=== PATIENT | male | born 1980 ===

== ENCOUNTER 2025-02-16 01:51 | Emergency (ER) | payer SELFPAY ==
[2025-02-16 02:09] VITALS: BP 141/89; PULSE 97; RESP 16; TEMP 36.9; O2SAT 97; BMI 23.9
--- NOTE | 2025-02-16 02:48 | ED.LOWEXIN ---
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 He is not up-to-date on his tetanus shot. He is able to walk but in pain at this time. Other than what is stated 14 point review of system is negative. Related Data Previous Rx's Medication Instructions Recorded cephalexin 500 mg capsule 500 mg PO Q6H #28 caps 02/16/25 hydrocodone 5 mg-acetaminophen 325 1 tab PO Q6H PRN pain #20 tabs 02/16/25 mg tablet Allergies Allergy/AdvReac Type Severity Reaction Status Date / Time No Known Drug Allergies Allergy Verified 02/16/25 02:09 Review of Systems Review of Systems ROS Unobtainable: All systems reviewed & are unremarkable except as noted in HPI and below Patient History Social History Smoking Status: Never smoker Smoking Status: Never smoker Exam Narrative Exam Narrative: GENERAL: [44] year old patient appears stated age. Well-developed patient, in mild distress. HEAD: Atraumatic. Normocephalic. EYES: Pupils equal round and reactive. Extraocular motions intact. No scleral icterus. No injection or drainage. NECK: Trachea midline. Non tender EXTREMITIES: No edema or joint tenderness. BACK: Nontender without deformity or crepitance. No flank tenderness. NEURO: AOx3. SKIN: R great toe nail is loose at the base but still intact , superficial abrasion at tip of big toe 0.1x0.1mm. Motor/sensory intact +2DP +2PT cap refill <2secs Initial Vital Signs Initial Vital Signs: Vital Signs Temperature 98.4 F 02/16/25 02:09 Pulse Rate 97 H 02/16/25 02:09 Respiratory Rate 16 02/16/25 02:09 Blood Pressure 141/89 H 02/16/25 02:09 Pulse Oximetry 97 02/16/25 02:09 Oxygen Delivery Method Room Air 02/16/25 02:09 Course Vital Signs Vital signs: Vital Signs - 8 hr 02/16/25 02:09 Temperature 98.4 F Pulse Rate 97 H Respiratory Rate 16 Blood Pressure 141/89 H Pulse Oximetry 97 Oxygen Delivery Method Room Air MDM - Extremity Injury (Lower) MDM Narrative Medical decision making narrative: Vital signs, nurse triage note, medication list, and all previous ER visits reviewed. Patient had tetanus updated along with bacitracin ointment [place] and ibuprofen given here. DC home on rx for [place] and cephalexin. Differential diagnosis include nail bed, nail plate, avulsion injury, subungual hematoma, cellulitis. Discussed with patient it would take a few weeks to months for nail to regrow again. Discharge Plan Departure Patient Disposition: Home Clinical Impression: Injury of nail Instructions: DI for Nail Avulsion Injury Activity Restrictions/Additional Instructions: Return with new or worsening symptoms. Take medicines as directed. Prescriptions: New cephalexin 500 mg capsule 500 mg PO Q6H Qty: 28 0RF hydrocodone-acetaminophen 5-325 mg tablet 1 tab PO Q6H PRN (Reason: pain) Qty: 20 0RF Stand Alone Forms: Patient Portal/API/Survey
[2025-02-16] MEDS: BACITRACIN OINT 0.9 GM PCKT 1 APPLIC TOP (02:54)
[2025-02-16] MEDS: cephALEXin 250 MG CAPSULE 500 MG PO (02:55)
[2025-02-16] MEDS: HYDROCODONE/ACET 5/325 TABLET 1 TAB PO (02:56)
[2025-02-16] MEDS: IBUPROFEN 400 MG TABLET 800 MG PO (02:56)
[2025-02-16] MEDS: TET,DIPH,PERTUSS(ACELL),VAC/PF 0.5 ML SYRINGE IM (02:57)
== END 2025-02-16 03:05 | disposition home or self-care (01) ==
PROVIDERS: Emergency Provider Family Medicine
DX: S91.211A Laceration without foreign body of right great toe with damage to nail, initial encounter (principal); Z23 Encounter for immunization; W22.8XXA Striking against or struck by other objects, initial encounter; Y92.511 Restaurant or cafe as the place of occurrence of the external cause
CPT/HCPCS: 90471; 99283; 99284; 90715